=== PATIENT | female | born 1980 | race Hispanic/Latino ===

== ENCOUNTER 2018-12-25 11:18 | Emergency (ER) | payer OTHER ==
[2018-12-25] MEDS ORDERED: Fluorescein Opthalmic Strip ONE (11:34)
[2018-12-25] MEDS ORDERED: Ibuprofen 600 MG TAB ONE (11:52)
[2018-12-25] MEDS ORDERED: diphenhydrAMINE 25 MG CAP ONE (11:52)
== END 2018-12-25 12:09 | disposition home or self-care (01) ==
LOC: SCSER 11:18
DX: S05.02XA Injury of conjunctiva and corneal abrasion without foreign body, left eye, initial encounter (principal); H10.9 Unspecified conjunctivitis; F25.9 Schizoaffective disorder, unspecified; F32.9 Major depressive disorder, single episode, unspecified; X58.XXXA Exposure to other specified factors, initial encounter
CPT/HCPCS: 99283; Q0163